=== PATIENT | female | born 1940 | race Hispanic/Latino ===

== ENCOUNTER 2025-03-26 10:02 | Emergency (ER) | payer MEDICARE, OTHER ==
[~2025-03-26] VITALS: Ht 152.4 cm; Wt 63.5 kg
[~2025-03-26 10:02] MED LIST: ACET1TAB12 PO; ASPI-1197 PO; CANA300T PO; FURO20TA4 PO; GLIP5TAB15 PO; IBUP-2077 PO; METF-446 PO; PRAV40TA3 PO
[2025-03-26 10:38] LABS: BASOPHILS # (AUTO) 0.05 K/uL (0.00-0.20); BASOPHILS % (AUTO) 0.4 % (0.0-5.0); EOSINOPHILS # (AUTO) 0.04 K/uL (0.00-0.70); EOSINOPHILS % (AUTO) 0.3 % (0.0-8.0); LYMPHOCYTES # (AUTO) 1.8 K/uL (1.0-4.8); LYMPHOCYTES % (AUTO) 14.8 % (21.0-51.0); MEAN CORPUSCULAR HEMOGLOBIN 28.9 pg (27.0-33.0); MEAN CORPUSCULAR HGB CONC 31.8 g/dL (32.0-36.0); MEAN CORPUSCULAR VOLUME 90.9 fL (79-99); MONOCYTES # (AUTO) 1.1 K/uL (0.1-1.0); MONOCYTES % (AUTO) 9.2 % (3.0-13.0); NEUTROPHILS # (AUTO) 9.1 K/uL (1.8-7.7); NEUTROPHILS % (AUTO) 74.5 % (40.0-77.0); PLATELET COUNT (AUTO) 376 K/uL (130-400); RED BLOOD CELL COUNT(AUTO) 3.74 MIL/uL (4.00-5.50); WHITE BLOOD COUNT (AUTO) 12.2 K/uL (4.8-10.8)
[2025-03-26 10:41] LABS: CREATININE 0.8 mg/dL (0.5-1.0); POTASSIUM 3.9 mmol/L (3.5-5.1)
--- NOTE | 2025-03-26 11:29 | HMCIMG ---
US VENOUS DOPPLER UNILATERAL HISTORY: Left lower extremity pain COMPARISON: None TECHNIQUE: Left lower extremity venous Doppler ultrasound study was performed. FINDINGS: The left common femoral, femoral, popliteal, and posterior tibial veins are visualized. Normal flow with augmentation and compressibilities are demonstrated. Left greater saphenous vein is patent. There is left Will's cyst measuring 3.4 x 1 x 2.6 cm. IMPRESSION: 1. No evidence of deep venous thrombosis is seen.
[2025-03-26 11:33] LABS: APPEARANCE,URINE CLEAR (CLEAR); BILIRUBIN,URINE NEGATIVE (NEGATIVE); COLOR,URINE LIGHT-YELLOW (YELLOW); GLUCOSE, URINE (UA) NEGATIVE (NEGATIVE); KETONES,URINE NEGATIVE (NEGATIVE); LEUKOCYTE ESTERASE ,URINE 75 Leu/uL (NEGATIVE); NITRATE,URINE NEGATIVE (NEGATIVE); OCCULT BLOOD,URINE NEGATIVE (NEGATIVE); PH,URINE 5.5 (5.0-8.0); PROTEIN,URINE 10 mg/dL (NEGATIVE); UROBILINOGEN,URINE 0.2 mg/dL (0.2-1.0)
[2025-03-26 11:37] LABS: ADD UA MICROSCOPIC YES
[2025-03-26 11:45] LABS: BACTERIA,URINE RARE /HPF (None Seen); MUCUS,URINE RARE LPF (None Seen); SQUAMOUS EPITHELIAL CELL,UR RARE /HPF (0-2)
[2025-03-26] MEDS: cefTRIAXone 1G VIAL IVPB ONE (12:10)
[2025-03-26] MEDS ORDERED: CEPH500B PO (12:18)
--- NOTE | 2025-03-26 12:19 | ERN ---
General Chief Complaint: Lower Extremity Pain/Injury Stated Complaint: LEG PAIN Time Seen by MD: 10:05 Source: patient History of Present Illness Initial Comments This is a an 85-year-old female coming in to complaining of lower extremity discomfort. Per patient this has been ongoing for a couple of days. She states that the pain begins at the left lower extremity [id number]. Long with this she was has been feeling a little weak. Allergies: Coded Allergies: No Known Drug Allergies (Verified Allergy, Unknown, 04/23/16) Home Meds Active Scripts Acetaminophen with Codeine (Tylenol with Codeine #3 Tablet) 1 Each Tablet, 1-2 TAB PO Q4HPRN PRN for PAIN, #40 TAB Prov:FERNANDA SONG MD 05/03/16 Reported Medications Glipizide (Glipizide) 5 Mg Tablet, 2 TAB PO 1530, TAB 04/23/16 Ibuprofen (Ibuprofen 800 mg Tab) 800 Mg Tab, 800 MG PO Q8HRS PRN for PRN, TAB PAIN 04/23/16 Metformin HCl (Metformin HCl) 1,000 Mg Tablet, 1000 MG PO BID, TAB 04/23/16 Pravastatin Sodium (Pravastatin Sodium) 40 Mg Tablet, 40 MG PO DAILY, TAB 04/23/16 Furosemide (Furosemide) 20 Mg Tablet, 20 MG PO DAILY, TAB 04/23/16 Canagliflozin (Invokana) 300 Mg Tablet, 300 MG PO DAILY, TAB 04/23/16 Aspirin (Aspirin) 81 Mg Tab.chew, 81 MG PO DAILY, TAB.CHEW 04/23/16 Past Medical History Past Medical History: Diabetes-Type II Past Surgical History: None ROS Dictation CONSTITUTIONAL: No chills, no fever, no weakness, no diaphoresis, no malaise. HEAD/FACE: No signs of trauma. EENT: No eye pain, no blurred vision, no tearing, no double vision, no ear pain, no ear discharge, no nose pain, no nasal congestion, no throat pain, no throat swelling, no mouth pain. RESPIRATORY: No cough, no orthopnea, no SOB, no stridor, no wheezing. CARDIOVASCULAR: No chest pain, no edema, no palpitations, no syncope. GASTROINTESTINAL/ABDOMINAL: No abdominal pain, no constipation, no diarrhea, no nausea, no vomiting. GENITOURINARY: No abnormal discharge, no dysuria, no frequent urination, no hematuria. No complaints of pain in the genitals. MUSCULOSKELETAL: No back pain, no gout, no joint pain, no joint swelling, muscle pain, no muscle stiffness, no neck pain. INTEGUMENTARY: No change in color, no change in hair/nails, no dryness, no lesion, no lumps, no rash. NEUROLOGICAL/PSYCH: No anxiety, not depressed, no emotional problem, no headache, no numbness, no pre-existing deficit, no history of seizures, no tremors, no weakness. HEMATOLOGIC/LYMPHATIC: Not anemic, no history of blood clots, no apparent bleeding, no bruising, glands not swollen. All Systems Negative, Except as Noted. Physical Exam Physical Exam Dictation VITAL SIGNS: Reviewed. GENERAL APPEARANCE: Alert, oriented x3, no acute distress, obese. HEAD AND FACE: Non-traumatic. EYES: PERRL, pink conjunctivas, eyelid no trauma, anterior chamber clear. EARS: Pinnas intact and no signs of trauma or erythema. Ear canals clear and no discharge. TMs no erythema. NOSE: No discharge, no bleeding. OROPHARYNX: Mouth normal, teeth no caries, tongue pink. Pharynx clear, no erythema. Tonsils no exudates, no abscesses noted. Mucous membrane moist. NECK: Supple, non-tender, no thyromegaly, no masses, no JVD, no bruits. BREAST: Deferred. CHEST: No tenderness, no crepitus, no paradoxical movement, no retractions. LUNGS: Clear, well-ventilated, symmetric, no rales, no wheezing, no rhonchi, no stridor, good breath sounds bilaterally. HEART: Regular rate, regular rhythm, no murmur, no gallops. VASCULAR: No peripheral edema. ABDOMEN: Soft, positive bowel sounds, nondistended, no guarding, nontender, no rebound, no masses no hepatomegaly, no splenomegaly, no Chun's sign, no hernias. RECTAL: Deferred. GENITAL: Deferred. NEUROLOGICAL: Normal speech, gross motor function intact, gross sensory fun ction intact. MUSCULOSKELETAL: Neck nontender, full range of motion, back nontender, full range of motion. EXTREMITIES: Nontender, full range of motion. Left calf tenderness on palpation SKIN: Color pink, dry, no turgor, no rash, no lacerations, no abrasions, no contusions. LYMPHATICS: Deferred. Results Laboratory and Microbiology Lab and Micro Result Laboratory Tests Test 03/26/25 10:27 03/26/25 11:10 White Blood Count 12.2 K/uL (4.8-10.8) H Red Blood Count 3.74 MIL/uL (4.00-5.50) L Hemoglobin 10.8 g/dL (12.0-16.0) L Hematocrit 34.0 % (36-48) L Mean Corpuscular Volume 90.9 fL (79-99) Mean Corpuscular Hemoglobin 28.9 pg (27.0-33.0) Mean Corpuscular Hemoglobin Concent 31.8 g/dL (32.0-36.0) L Red Cell Distribution Width 14.0 % (11.0-15.5) Platelet Count 376 K/uL (130-400) Mean Platelet Volume 9.3 fL (7.5-10.5) Immature Granulocyte % (Auto) 0.8 % (0-1) Neutrophils (%) (Auto) 74.5 % (40.0-77.0) Lymphocytes (%) (Auto) 14.8 % (21.0-51.0) L Monocytes (%) (Auto) 9.2 % (3.0-13.0) Eosinophils (%) (Auto) 0.3 % (0.0-8.0) Basophils (%) (Auto) 0.4 % (0.0-5.0) Neutrophils # (Auto) 9.1 K/uL (1.8-7.7) H Lymphocytes # (Auto) 1.8 K/uL (1.0-4.8) Monocytes # (Auto) 1.1 K/uL (0.1-1.0) H Eosinophils # (Auto) 0.04 K/uL (0.00-0.70) Basophils # (Auto) 0.05 K/uL (0.00-0.20) Absolute Immature Granulocyte (auto 0.10 K/uL (0-1) Nucleated Red Blood Cells 0.0 % (0.0-0.19) Sodium Level 137 mmol/L (136-145) Potassium Level 3.9 mmol/L (3.5-5.1) Chloride Level 101 mmol/L (101-111) Carbon Dioxide Level 26 mmol/L (21-32) Blood Urea Nitrogen 17 mg/dL (7-18) Creatinine 0.8 mg/dL (0.5-1.0) Glomerular Filtration Rate Calc 73 mL/min (>90) Random Glucose 194 mg/dL (70-105) H Total Calcium 8.6 mg/dL (8.5-10.1) Urine Color LIGHT-YELLOW (YELLOW) Urine Appearance CLEAR (CLEAR) Urine pH 5.5 (5.0-8.0) Urine Specific [place] 1.022 (1.001-1.031) Urine Protein 10 mg/dL (NEGATIVE) H Urine Glucose (UA) NEGATIVE mg/dL (NEGATIVE) Urine Ketones NEGATIVE mg/dL (NEGATIVE) Urine Occult Blood NEGATIVE (NEGATIVE) Urine Nitrate NEGATIVE (NEGATIVE) Urine Bilirubin NEGATIVE mg/dL (NEGATIVE) Urine Urobilinogen 0.2 mg/dL (0.2-1.0) Urine Leukocyte Esterase 75 Maxine/uL (NEGATIVE) H Urine RBC 2-5 /HPF (0-1) H Urine WBC 2-5 /HPF (0-1) H Urine Squamous Epithelial Cells RARE /HPF (0-2) Urine Bacteria RARE /HPF (None Seen) Labs Reviewed?: Yes EKG/XRAY/US/CT/MRI Ultrasound Comment [place] [id number] [address] IMAGING REPORT Signed PATIENT: LEIF TOMLIN MR#: [id number] : 1940 SEX: F AGE: 85 LOCATION: [facility] ORDER [id number] STATUS: REG ER REPORT#: [id number] SERVICE [id number] REASON: left lower ex ORDERING PHYSICIAN: VINNY JOHNSTON MD PROCEDURE: VENOUS UNI - US VENOUS DOPPLER UNILATERAL US VENOUS DOPPLER UNILATERAL HISTORY: Left lower extremity pain COMPARISON: None TECHNIQUE: Left lower extremity venous Doppler ultrasound study was performed. FINDINGS: The left common femoral, femoral, popliteal, and posterior tibial veins are visualized. Normal flow with augmentation and compressibilities are demonstrated. Left greater saphenous vein is patent. There is left Will's cyst measuring 3.4 x 1 x 2.6 cm. IMPRESSION: 1. No evidence of deep venous thrombosis is seen. DICTATED BY: ANGELIKA BOO MD DATE: 03/26/25 112 ELECTRONICALLY SIGNED BY: ANGELIKA BOO MD DATE: 03/26/25 1129 [facility] MDM: Differential diagnosis: Will's cyst, DVT, UTI, dehydration Rationale: Tests considered and ordered secondary to shared decision making include: Previous outside records reviewed: Old ER visits. Risk of complication and/or morbidity or mortality of patient management: None Medications-Per medication reconciliation Patient was 85-year-old female coming in to be evaluated for lower extremity pain. Ultrasound disclose a Will's cyst. Long with this patient was found to have a urinary tract infection she received IV antibiotics and will be discharged in stable condition with a diagnosis of UTI and Will's cyst. ED Course Orders Procedure Category Date Status Time Cbc With Differential LAB 03/26/25 Complete 10:08 Basic Metabolic Panel LAB 03/26/25 Complete 10:08 Us Venous Doppler US 03/26/25 Resulted Unilateral 10:08 Urinalysis Profile LAB 03/26/25 Complete 11:09 Culture Urine DAWSON 03/26/25 In Process 11:38 Ceftriaxone 1g Vial PHA 03/26/25 Complete (Rocephine 1g Inj) 12:00 Current Medications Medications (Trade) Dose Ordered Sig/Damon Route PRN Reason Start Time Stop Time Status Last Admin Dose Admin Ceftriaxone Sodium (ROCEphine 1G INJ) 1 gm ONCE ONCE IVPB 03/26/25 12:00 03/26/25 12:01 DC 03/26/25 12:10 Vital Signs Date Time Temp Pulse Resp B/P (MAP) Pulse Ox O2 Delivery O2 Flow Rate FiO2 03/26/25 12:09 78 16 150/70 97 Room Air* 0 21 03/26/25 10:03 98.4 78 16 127/78 96 Room Air 0 DX & DISP Disposition: Discharge Departure Impression: Primary Impression: Bakers cyst Additional Impression: UTI (urinary tract infection) Condition: Stable Scripts Cephalexin Monohydrate (Keflex) 500 Mg Cap 1 CAP PO TID for 10 Days, #30 CAP 0 Refills Prov: VINNY JOHNSTON MD 03/26/25 Additional Instructions: FOLLOW-UP WITH PRIMARY CARE PROVIDER IN 1 TO 2 DAYS. TAKE MEDICATIONS DIRECTED HERE IN THE EMERGENCY ROOM. OKAY TO CONTINUE HOME MEDICATIONS UNLESS OTHERWISE DISCUSSED DURING YOUR VISIT IN THE EMERGENCY ROOM TODAY. RETURN TO YOUR NEAREST EMERGENCY ROOM IF SYMPTOMS WORSEN OR IF THERE IS NO IMPROVEMENT. CALL 911 IF YOU NEED IMMEDIATE ASSISTANCE. TAKE TYLENOL [id number] NEEDED AND IF NO CONTRAINDICATIONS ARE PRESENT. INCREASE ORAL HYDRATION. A WOUND CULTURE OR URINE CULTURE WAS ORDERED HERE IN THE EMERGENCY ROOM DEPARTMENT PLEASE FOLLOW-UP WITH PRIMARY CARE PROVIDER AND ADVISE THEM TO GET REPEAT PORTS FROM OUR FACILITY. IF YOU HAD ANY JULEE WRAP/SPLINTS THAT WERE APPLIED HERE, PLEASE DO NOT REMOVE THEM UNTIL YOU SEE YOUR PRIMARY CARE OR SPECIALTY. Referrals: Referrals: ARACELI SALINAS MD (PCP) Time of Disposition: 12:17 VINNY JOHNSTON MD Mar 26, 2025 12:19
[2025-03-26 13:13] VITALS: BP 148/72; PULSE 75; RESP 16; TEMP 98.3; O2SAT 97
== END 2025-03-26 13:27 | disposition home or self-care (01) ==
LOC: EDH 10:02
DX: M71.21 Synovial cyst of popliteal space [Baker], right knee (principal); N39.0 Urinary tract infection, site not specified; E11.9 Type 2 diabetes mellitus without complications; Z79.82 Long term (current) use of aspirin; Z79.84 Long term (current) use of oral hypoglycemic drugs; Z79.899 Other long term (current) drug therapy
CPT/HCPCS: 99285; 96365; 93971; 80048; 85025; 87086; 81001; 36415; J0696